=== PATIENT | male | born 1970 | race African-American/Black ===

== ENCOUNTER → 2017-08-21 | Outpatient (CLI) | payer MEDICAID ==
[2017-01-10 17:49] VITALS: BP 142/91
[2017-08-21 11:48] LABS: BASOPHILS # (AUTO) 0.1 X10^3/uL (0.0-0.1); BASOPHILS % (AUTO) 0.7 % (0.2-1.0); EOSINOPHILS # (AUTO) 0.1 x10^3/uL (0.0-0.2); EOSINOPHILS % (AUTO) 1.6 % (0.9-2.9); HEMATOCRIT 41.9 % (42.0-54.0); HEMOGLOBIN 14.1 g/dL (13.5-18.0); MEAN CORPUSCULAR HEMOGLOBIN 27.6 pg (27.0-34.0); MEAN CORPUSCULAR HGB CONC 33.6 g/dL (33.0-35.0); MEAN CORPUSCULAR VOLUME 82.3 fL (80.0-100.0); MEAN PLATELET VOLUME 7.9 fL (7.4-11.0); MONOCYTES # (AUTO) 0.5 x10^3/uL (0.3-0.8); NEUTROPHILS # (AUTO) 3.6 x10^3/uL (2.2-4.8); NEUTROPHILS % (AUTO) 43.7 % (42.0-75.0); PLATELET COUNT 207 X10^3/uL (150.0-450.0); RED BLOOD COUNT 5.09 X10^6/uL (4.7-6.0); RED CELL DISTRIBUTION WIDTH 14.4 % (11.6-16.5); WHITE BLOOD COUNT 8.3 X10^3/uL (3.6-10.0)
[2017-08-21 12:02] LABS: ALANINE AMINOTRANSFERASE 26 Units/L (12-78); ALBUMIN 3.5 g/dL (3.4-5.0); ALKALINE PHOSPHATASE 89 Units/L (46-116); ASPARTATE AMINO TRANSFERASE 20 Units/L (15-37); BLOOD UREA NITROGEN 16 mg/dL (7-18); CALCIUM 9.2 mg/dL (8.5-10.1); CARBON DIOXIDE 31.1 mmol/L (21-32); CHLORIDE 106 mmol/L (98-107); CREATININE 0.87 mg/dL (0.70-1.30); SODIUM 141 mmol/L (136-145); TOTAL PROTEIN 7.4 g/dL (6.4-8.2); eGFR BLACK RACES > 60 (>60); eGFR NON BLACK RACES > 60 (>60)
--- NOTE | 2017-08-21 13:57 | RAD ---
Examination: Chest x-ray. Clinical History: Chest pain. Technique: PA and lateral views of the chest were obtained. Comparison: 10/24/2012. Findings: The cardiac and mediastinal contours are within normal limits. No pneumothorax or pleural effusion is noted. The lungs appear clear. No acute osseous abnormality is noted. Impression: 1. No acute disease. Reported By:
== END ==
LOC: LAB 11:14
PROVIDERS: ATTEND Nurse Practitioner Family
DX: R07.89 Other chest pain (principal)
CPT/HCPCS: 36415; 71020; 80053; 85025

== ENCOUNTER → 2017-10-23 | Outpatient (CLI) | payer MEDICAID ==
[2017-01-10 17:49] VITALS: BP 142/91
--- NOTE | 2017-10-23 16:59 | RAD ---
Examination: Chest, PA and lateral views History: Cough and chest pain Comparison reference 08/21/2017 Findings: Continued normal heart size with clear lungs and pleural spaces. Impression: No interval change; no acute disease. Reported By:
== END ==
LOC: RAD 16:01
PROVIDERS: ATTEND Nurse Practitioner Family
DX: R05 Cough (principal)
CPT/HCPCS: 71020

== ENCOUNTER 2017-11-21 12:42 | Observation (INO) | payer MEDICAID ==
--- NOTE | 2017-11-21 13:23 | DR.H&P ---
H&P - History & Physical for Day of: H&P Date: 11/21/17 - Chief Complaint Chief Complaint: CP, SOB, WEAKNESS - Allergies Allergies/Adverse Reactions: Allergies Allergy/AdvReac Type Severity Reaction Status Date / Time MS Acetaminophen Allergy Intermediate THROAT Verified 01/10/17 17:50 [From Tylenol] SWELL UP MS Aspirin [Aspirin] Allergy Verified 01/10/17 17:50 - History of Present Illness History of Present Illness: patient is a 47-year-old black male who was a direct admit from Dr. Tucker's office after presenting with complaints of chest pain and shortness of breath and increased weakness. 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 patienthypertension, diabetes, or coronary artery disease.has past medical history of osteoarthritis negative for. Patient had EKG in the office today with a rate in the 40s. Patient was a direct admit to ICU for further evaluation of symptomatic bradycardia. - Past Medical History Past Medical History: Arthritis, Seizures - Past Surgical History Surgical History: Ortho Surgery - Family History Family Medical History: Diabetes Mellitus, [place], Hypertension - Social History Does patient currently use any type of tobacco product: Yes Have you used tobacco products in the last 12 months: Yes Type of Tobacco Use: Cigarettes Does any household member use tobacco: No Alcohol Use: None Drug Use: None - Review of Systems Constitutional: Weakness Eyes: No Symptoms Reported ENT: No Symptoms Reported Respiratory: Shortness of Breath, SOB with Excertion Cardiovascular: Chest Pain, Light Headedness. denies: Edema Gastrointestinal: Nausea Genitourinary: No Symptoms Reported Musculoskeletal: Shoulder Pain, Back Pain Skin: No Symptoms Reported Neurological: Weakness - Physical Exam Vital Signs: Blood Pressure 142/91 Oriented: Normal Eyes: Normal Ear: Normal Nose: Normal Throat: Normal Respiratory: RLL Diminished, LLL Diminished Cardiovascular: Bradycardia, Irregular : Normal Auscultation: Bowel Sounds: Normal Palpation: Normal Tenderness: Normal Skin: Normal Musculoskeletal: Shoulder, Back:Lumbar Psychiatric: Anxiety Speech Pattern: Clear, Appropriate - Assessment/Plan (1) Symptomatic bradycardia Status: Acute Plan: ADMIT ICU, SERIAL CE'S EKGS. CXR ON ADMISSION, ADMISSION LABS CBC CMP MAG. SUPPLEMENTAL O2. BP MONITORING (2) Chest pain Status: Acute (3) Shortness of breath Status: Acute
--- NOTE | 2017-11-21 13:54 | RAD ---
Examination: AP chest History: Seizure, chest pain SOB Comparison reference 10/23/2017 Findings: Normal transverse heart diameter with clear lungs and pleural spaces. Impression: No change; no acute abnormality demonstrated. Reported By:
[2017-11-21 14:09] LABS: BASOPHILS # (AUTO) 0.1 X10^3/uL (0.0-0.1); BASOPHILS % (AUTO) 1.1 % (0.2-1.0); EOSINOPHILS # (AUTO) 0.1 x10^3/uL (0.0-0.2); EOSINOPHILS % (AUTO) 1.3 % (0.9-2.9); HEMATOCRIT 44.1 % (42.0-54.0); HEMOGLOBIN 14.7 g/dL (13.5-18.0); LYMPHOCYTES # (AUTO) 3.4 X10^3/uL (1.3-2.9); LYMPHOCYTES % (AUTO) 48.1 % (21.0-51.0); MEAN CORPUSCULAR HEMOGLOBIN 27.5 pg (27.0-34.0); MEAN CORPUSCULAR HGB CONC 33.3 g/dL (33.0-35.0); MEAN CORPUSCULAR VOLUME 82.5 fL (80.0-100.0); MEAN PLATELET VOLUME 8.7 fL (7.4-11.0); MONOCYTES # (AUTO) 0.4 x10^3/uL (0.3-0.8); MONOCYTES % (AUTO) 5.1 % (0.0-13.0); NEUTROPHILS # (AUTO) 3.1 x10^3/uL (2.2-4.8); NEUTROPHILS % (AUTO) 44.4 % (42.0-75.0); PLATELET COUNT 196 X10^3/uL (150.0-450.0); RED BLOOD COUNT 5.35 X10^6/uL (4.7-6.0); RED CELL DISTRIBUTION WIDTH 14.2 % (11.6-16.5); WHITE BLOOD COUNT 7.1 X10^3/uL (3.6-10.0)
[2017-11-21 14:27] LABS: ALANINE AMINOTRANSFERASE 24 Units/L (12-78); ALBUMIN 4.1 g/dL (3.4-5.0); ALKALINE PHOSPHATASE 109 Units/L (46-116); ASPARTATE AMINO TRANSFERASE 36 Units/L (15-37); BLOOD UREA NITROGEN 8 mg/dL (7-18); CALCIUM 9.1 mg/dL (8.5-10.1); CARBON DIOXIDE 31.7 mmol/L (21-32); CHLORIDE 106 mmol/L (98-107); CREATININE 0.95 mg/dL (0.70-1.30); MAGNESIUM 1.7 mg/dL (1.7-2.9); SODIUM 143 mmol/L (136-145); TOTAL PROTEIN 8.2 g/dL (6.4-8.2); eGFR BLACK RACES > 60 (>60); eGFR NON BLACK RACES > 60 (>60)
[2017-11-21 14:38] LABS: CKMB % 0.4 % (<4); CREATINE KINASE 636 Units/L (39-308); CREATINE KINASE MB 2.5 ng/mL (0-4.0); TROPONIN I < 0.02 ng/mL (0-1.5)
[2017-11-21 15:08] LABS: FREE T4 (FREE THYROXINE) 0.86 ng/dL (0.76-1.46); TSH (3RD GENERATION) 1.169 uIU/mL (0.358-3.74)
[2017-11-21 15:11] VITALS: BMI 22.5
[2017-11-21 16:13] LABS: BILIRUBIN,URINE NEGATIVE (NEGATIVE); BLOOD/HEMOGLOBIN,URINE 1+ (NEGATIVE); GLUCOSE, URINE NEGATIVE (NEGATIVE); KETONES,URINE NEGATIVE (NEGATIVE); LEUKOCYTE ESTERASE ,URINE 1+ (NEGATIVE); NITRITES,URINE NEGATIVE (NEGATIVE); PROTEIN,URINE NEGATIVE (NEGATIVE); UROBILINOGEN,URINE NORMAL (NORMAL)
[2017-11-21 16:29] LABS: APPEARANCE,URINE CLEAR (CLEAR); COLOR,URINE YELLOW (YELLOW); RBC,URINE 15-20 /HPF (NEGATIVE)
[2017-11-21 16:30] LABS: SQUAMOUS EPITHELIAL CELL,UR RARE /HPF (NEGATIVE)
[2017-11-21 16:31] LABS: BACTERIA,URINE TRACE /HPF (NEGATIVE)
[2017-11-21 19:59] LABS: CKMB % 0.4 % (<4); CREATINE KINASE 486 Units/L (39-308); CREATINE KINASE MB 1.9 ng/mL (0-4.0); TROPONIN I < 0.02 ng/mL (0-1.5)
[2017-11-22 02:03] LABS: CKMB % 0.4 % (<4); CREATINE KINASE 367 Units/L (39-308); CREATINE KINASE MB 1.6 ng/mL (0-4.0); TROPONIN I < 0.02 ng/mL (0-1.5)
[2017-11-22 06:40] LABS: CHOL/HDL RATIO 2.8 (0.0-5.0)
[2017-11-22] MEDS ORDERED: PROTONIX INJ 40 MG VIAL IVP SCH (09:00)
[2017-11-22] MEDS ORDERED: ASPIRIN PO SCH (09:00)
[2017-11-22] MEDS ORDERED: NICOTINE PATCH TD ONE (10:16)
[2017-11-22 17:32] VITALS: BP 142/87
== END 2017-11-22 17:15 | disposition short-term general hospital (02) ==
LOC: ICU 12:42 → UNDOADMOB 12:42 → ICU 13:11
PROVIDERS: ADMIT Internal Medicine; ATTEND Internal Medicine
DX: R00.1 Bradycardia, unspecified (principal); R07.89 Other chest pain; R06.02 Shortness of breath; R53.1 Weakness; R94.31 Abnormal electrocardiogram [ECG] [EKG]; R79.89 Other specified abnormal findings of blood chemistry
CPT/HCPCS: 36415; 71010; 80053; 80061; 81001; 82550; 82553; 83735; 84439; 84443; 84484; 85025; 85378; 85610; 85730; 93005; 93010; A4216; A4222; C9113; G0378

== ENCOUNTER 2017-12-18 17:43 | Emergency (ER) | payer MEDICAID ==
[2017-12-18 17:49] VITALS: BMI 25.1
--- NOTE | 2017-12-18 18:31 | DR.GENAD ---
HPI - PCP Primary Care Physician: olga lidia gunn - Complaint/Symptoms Chief Complaint Doctors Comments: Patient was seen by his primary care provider today he states that she gave him a shot for stomach pain, he states that he spit/vomited a large volume of sputum. Chief Complaint:: "hurting in abdomen and hack thick spit after getting shot at [facility] for pain I dont know what she gave me" - Source History Provided: Patient - Mode of Arrival Mode of Arrival: EMS - Timing Onset of Chief Complaint: 12/18/17 PMH - PMH Past Medical History: Yes Past Medical History: Arthritis, Seizures Past Surgical History: Yes Surgical History: Ortho Surgery - Family History History of Family Medical Conditions: Yes Family Medical History: Diabetes Mellitus, [place], Hypertension - Social History Does patient currently use any type of tobacco product: Yes Have you used tobacco products in the last 12 months: Yes Type of Tobacco Use: Cigarettes How many years tobacco product used: 8 Does any household member use tobacco: No Alcohol Use: None Do you use any recreational Drugs:: No Lives With: Family Lives Where: Home - infectious screening In the last 2 months have you had wt loss of >10#?: NO Have you had fever, night sweats or hemotysis?: No Have you traveled outside the country in the last 6 months?: No Isolation: Standard ROS - Review of Systems Constitutional: No Symptoms Reported Eyes: No Symptoms Reported ENTM: No Symptoms Reported Cardiovascular: No Symptoms Reported Gastrointestinal/Abdominal: No Symptoms Reported Genitourinary: No Symptoms Reported Neurological: No Symptoms Reported, Emotional Problems Musculoskeletal: No Symptoms Reported Integumentary: No Symptoms Reported Hematologic/Lymphatic: No Symptoms Reported Endocrine: No Symptoms Reported Psychiatric: No Symptoms Reported All Other Systems: Reviewed and Negative PE - Vital Signs Vitals: Temperature 98 F Pulse Rate 66 Respiratory Rate 18 Blood Pressure [Right Arm] 142/87 Blood Pressure 130/77 O2 Sat by Pulse Oximetry 100 - General Limitations: No Limitations General Appearance: Alert, In No Apparent Distress - Head Head Exam: Normal Inspection, Atraumatic - Eyes Eye exam: Normal Appearance, PERRL, EOMI - ENT ENT Exam: Normal Exam External Ear Exam: Normal External Inspection TM/Canal Exam: Bilateral Normal Nose Exam: Normal Nose Exam Mouth Exam: Normal Inspection Throat Exam: Normal Inspection - Neck Neck Exam: Normal Inspection, Full ROM - Chest Chest Inspection: Normal Inspection - Respiratory Respiratory Exam: Normal Lung Sounds Bilat Respiratory Exam: Bilateral Clear to Auscultation - Cardiovascular Cardiovascular Exam: Regular Rate, Normal Rhythm - Abdominal Exam Abdominal Exam: Normal Inspection Abdominal Tenderness: negative: RUQ, RLQ, LUQ, LLQ, Epigastrium, Suprapubic, Diffuse, Mild, Moderate, Severe, Other - Extremities Extremities Exam: Normal Inspection, Full ROM - Back Back Exam: Normal Inspection, Full ROM - Neurologic Neurological Exam: Alert, Oriented X3, CN II-XII Intact - Skin Skin Exam: Warm, Dry, Intact Course - Reevaluation 1st: Improved ROR - Labs Reviewed Result Diagrams: 12/18/17 19:30 12/18/17 19:30 Laboratory: WBC 6.9 X10^3/uL (3.6-10.0) 12/18/17 19:30 RBC 4.82 X10^6/uL (4.7-6.0) 12/18/17 19:30 Hgb 13.3 g/dL (13.5-18.0) L 12/18/17 19:30 Hct 39.6 % (42.0-54.0) L 12/18/17 19:30 MCV 82.2 fL (80.0-100.0) 12/18/17 19:30 MCH 27.5 pg (27.0-34.0) 12/18/17 19:30 MCHC 33.5 g/dL (33.0-35.0) 12/18/17 19:30 RDW 13.9 % (11.6-16.5) 12/18/17 19:30 Plt Count 206 X10^3/uL (150.0-450.0) 12/18/17 19:30 MPV 8.2 fL (7.4-11.0) 12/18/17 19:30 Neut % 38.2 % (42.0-75.0) L 12/18/17 19:30 Lymph % 50.5 % (21.0-51.0) 12/18/17 19:30 Logan % 7.1 % (0.0-13.0) 12/18/17 19:30 Eos % 3.5 % (0.9-2.9) H 12/18/17 19:30 Baso % 0.7 % (0.2-1.0) 12/18/17 19:30 Neut # 2.6 x10^3/uL (2.2-4.8) 12/18/17 19:30 Lymph # 3.5 X10^3/uL (1.3-2.9) H 12/18/17 19:30 Logan # 0.5 x10^3/uL (0.3-0.8) 12/18/17 19:30 Eos # 0.2 x10^3/uL (0.0-0.2) 12/18/17 19:30 Baso # 0.1 X10^3/uL (0.0-0.1) 12/18/17 19:30 Absolute Nucleated RBC 0.1 /100WBC 12/18/17 19:30 Sodium 141 mmol/L (136-145) 12/18/17 19:30 Corrected Sodium TNP 12/18/17 19:30 Potassium 3.6 mmol/L (3.5-5.1) 12/18/17 19:30 Chloride 106 mmol/L (98-107) 12/18/17 19:30 Carbon Dioxide 31.6 mmol/L (21-32) 12/18/17 19:30 BUN 16 mg/dL (7-18) 12/18/17 19:30 Creatinine 0.85 mg/dL (0.70-1.30) 12/18/17 19:30 Est GFR (MDRD) Af Amer > 60 (>60) 12/18/17 19:30 Est GFR (MDRD) Non-Af > 60 (>60) 12/18/17 19:30 Glucose 105 mg/dL (65-99) H 12/18/17 19:30 Calcium 9.1 mg/dL (8.5-10.1) 12/18/17 19:30 Corrected Calcium TNP 12/18/17 19:30 Total Bilirubin 0.40 mg/dL (0.2-1.0) 12/18/17 19:30 AST 20 Units/L (15-37) 12/18/17 19:30 ALT 27 Units/L (12-78) 12/18/17 19:30 Alkaline Phosphatase 89 Units/L (46-116) 12/18/17 19:30 Total Protein 7.5 g/dL (6.4-8.2) 12/18/17 19:30 Albumin 3.5 g/dL (3.4-5.0) 12/18/17 19:30 Globulin 4.0 g/dL (2.5-4.5) 12/18/17 19:30 Albumin/Globulin Ratio 0.9 Ratio (1.1-2.1) L 12/18/17 19:30 - XRAY XRAY Interpreted by: Radiologist (Chest:Dual chamber pacematker right; Lungs clear w/o consolidation,effusion or pneumonia, Flat/upright Abd: no pathology) - Diagnosis Discharge Problem: Stomach pain - Discharge Plan Condition: Stable - Follow ups/Referrals Follow ups/Referrals: OLGA LIDIA GUNN [Primary Care Provider] - 3 days - Instructions
--- NOTE | 2017-12-18 19:14 | RAD ---
HISTORY: Stomach pain Study: Acute abdominal series Comparison: None Findings: There is a right-sided dual-chamber pacemaker. The lungs are clear without consolidation, effusion or pneumothorax. The cardiac and mediastinal contours are within normal limits. Flat plate and upright evaluation of the abdomen demonstrates a normal bowel gas pattern. No gross fr ee intraperitoneal air. No pathological soft tissue mass or calcification can be observed. The bony structures are grossly intact. IMPRESSION: 1. No acute cardiopulmonary disease. 2. No evidence of acute abdominal pathology. Reported By:
[2017-12-18 19:48] LABS: BASOPHILS # (AUTO) 0.1 X10^3/uL (0.0-0.1); BASOPHILS % (AUTO) 0.7 % (0.2-1.0); EOSINOPHILS # (AUTO) 0.2 x10^3/uL (0.0-0.2); EOSINOPHILS % (AUTO) 3.5 % (0.9-2.9); HEMATOCRIT 39.6 % (42.0-54.0); HEMOGLOBIN 13.3 g/dL (13.5-18.0); LYMPHOCYTES # (AUTO) 3.5 X10^3/uL (1.3-2.9); LYMPHOCYTES % (AUTO) 50.5 % (21.0-51.0); MEAN CORPUSCULAR HEMOGLOBIN 27.5 pg (27.0-34.0); MEAN CORPUSCULAR HGB CONC 33.5 g/dL (33.0-35.0); MEAN CORPUSCULAR VOLUME 82.2 fL (80.0-100.0); MEAN PLATELET VOLUME 8.2 fL (7.4-11.0); MONOCYTES # (AUTO) 0.5 x10^3/uL (0.3-0.8); MONOCYTES % (AUTO) 7.1 % (0.0-13.0); NEUTROPHILS # (AUTO) 2.6 x10^3/uL (2.2-4.8); NEUTROPHILS % (AUTO) 38.2 % (42.0-75.0); PLATELET COUNT 206 X10^3/uL (150.0-450.0); RED BLOOD COUNT 4.82 X10^6/uL (4.7-6.0); RED CELL DISTRIBUTION WIDTH 13.9 % (11.6-16.5); WHITE BLOOD COUNT 6.9 X10^3/uL (3.6-10.0)
[2017-12-18 19:59] LABS: ALANINE AMINOTRANSFERASE 27 Units/L (12-78); ALBUMIN 3.5 g/dL (3.4-5.0); ALKALINE PHOSPHATASE 89 Units/L (46-116); ASPARTATE AMINO TRANSFERASE 20 Units/L (15-37); BLOOD UREA NITROGEN 16 mg/dL (7-18); CALCIUM 9.1 mg/dL (8.5-10.1); CARBON DIOXIDE 31.6 mmol/L (21-32); CHLORIDE 106 mmol/L (98-107); CREATININE 0.85 mg/dL (0.70-1.30); SODIUM 141 mmol/L (136-145); TOTAL PROTEIN 7.5 g/dL (6.4-8.2); eGFR BLACK RACES > 60 (>60); eGFR NON BLACK RACES > 60 (>60)
[2017-12-18 20:39] VITALS: BP 109/78
== END 2017-12-18 20:39 | disposition home or self-care (01) ==
LOC: ER 17:46
DX: R10.84 Generalized abdominal pain (principal)
CPT/HCPCS: 36415; 74022; 80053; 85025; 99282

== ENCOUNTER 2019-05-10 11:44 | Observation (INO) ==
[2019-05-10 11:50] VITALS: BMI 24.3
--- NOTE | 2019-05-10 12:06 | DR.CP ---
HPI Time Seen Time Seen by Provider: 05/10/19 12:05 PCP Primary Care Physician: CARLA ADHIKARI HPI Comment HPI Comment: PATIENT IS 48YR OLD MALE WITH HISTORORY HYPERTENSION PRESENT TO EMERGENCY ROOM WITH SUDDEN ONSET OF PRECORDIAL CHEST PAIN RADIATING TO THE BACK. Complaint Chief Complaint Doctor Comments: CHEST PAIN THAT STARTED SUDDENLY TODAY. Chief Complaint:: PT C/O CP. PT STATES PAIN HAS JUST STARTED OUT OF NOWHERE Reviewed Nurses Notes Review: Yes Source History Provided: Patient Mode of Arrival Mode of Arrival: Ambulatory Timing Onset of Chief Complaint: 05/10/19 Came on: Suddenly Duration Duration: Constant Duration: Hours Location Location of Chest Pain: Left and Chest Chest Pain Radiation Location: Back Context Onset: At rest Cardiac Risk Factors: Smoker and HTN PE Risk Factors: None History of: None Prehospital Care: None Quality Quality: Sharp Severity Severity: Severe Modifying Factors Worsens: Exertion Impoves: Rest Associated Signs and Symptoms Associated Signs and Symptoms: Shortness of Breath PMH PMH Past Medical History: Yes Past Medical History: Arthritis, Hypertension and Seizures Past Surgical History: Yes Surgical History: Ortho Surgery and Other Family History History of Family Medical Conditions: Yes Family Medical History: Diabetes Mellitus, [place] and Hypertension Social History Does patient currently use any type of tobacco product: Yes Have you used tobacco products in the last 12 months: Yes Type of Tobacco Use: Cigarettes How many years tobacco product used: 35 Does any household member use tobacco: No Alcohol Use: Occasionally Do you use any recreational Drugs:: Yes Lives With: Spouse Lives Where: Home infectious screening In the last 2 months have you had wt loss of >10#?: NO Have you had fever, night sweats or hemotysis?: No Have you traveled outside the country in the last 6 months?: No Isolation: Standard ROS Review of Systems Constitutional: See HPI, Weakness and Fatigue; negative Fever Eyes: No Symptoms Reported and See HPI ENTM: No Symptoms Reported and See HPI Respiratoy: See HPI and Short of Breath; negative Moist Cough and Wheezing Cardiovascular: See HPI and Chest Pain; negative Edema and Palpitations Gastrointestinal/Abdominal: No Symptoms Reported and See HPI; negative Abdominal Pain, Constipation, Diarrhea, Nausea and Vomiting Genitourinary: No Symptoms Reported and See HPI; negative Dysuria, Frequency and Hematuria Neurological: See HPI and Weakness; negative Dizziness Musculoskeletal: No Symptoms Reported and See HPI; negative Back Pain and Neck Pain Integumentary: No Symptoms Reported and See HPI; negative Change in Color, Rash, Bruises and Juandice Hematologic/Lymphatic: No Symptoms Reported and See HPI; negative Easy Bleeding, Easy Bruising, Swollen Glands and Lymphadenopathy Endocrine: No Symptoms Reported and See HPI; negative Increased Thirst, Increased Urine and Decreased Appetite Psychiatric: No Symptoms Reported and See HPI All Other Systems: Reviewed and Negative PE Vitals Vitals: Temperature 98.0 F Pulse Rate [Left Brachial] 92 Pulse Rate 60 Respiratory Rate 20 Blood Pressure [Left Arm] 112/74 Blood Pressure [Right Arm] 109/78 Blood Pressure 120/85 O2 Sat by Pulse Oximetry 99 General Limitations: No Limitations General Appearance: Alert and In No Apparent Distress Head Head Exam: Normal Inspection, Atraumatic and Normocephalic Eyes Eye exam: Normal Appearance, PERRL and EOMI; negative Scleral Icterus and Conjun ctival Injection ENT ENT Exam: Normal Exam, Normal Oropharynx, Normal External Ear Exam and TM's Normal Bilaterally Chest Chest Inspection: Normal Inspection and Symmetric Chest Wall Rise; negative Tenderness Respiratory Respiratory Exam: Normal Lung Sounds Bilat; negative Accessory Muscle Use, Chest Wall Tenderness and Respiratory Distress Respiratory Exam: Bilateral: Clear to Auscultation Cardiovascular Cardiovascular Exam: Regular Rate, Normal Rhythm and Normal Heart Sounds; negative Systolic Murmur and Diastolic Murmur Pulse: Normal Edema: Normal Abdominal Exam Abdominal Exam: Normal Inspection, Normal Bowel Sounds and Soft; negative Tenderness Extremities Extremities Exam: Normal Inspection and Normal Capillary Refill; negative Tenderness, Edema and Calf Tenderness Back Back Exam: Normal Inspection; negative Tenderness, Paraspinal Tenderness and Vertebral Tenderness Neurologic Neurological Exam: Alert, Oriented X3, CN II-XII Intact, Normal Gait and Reflexes Normal; negative Motor Sensory Deficit Psychiatric Psychiatric Exam: Normal Affect and Normal Mood Skin Skin Exam: Warm, Dry, Intact and Normal Color MDM Differential Diagnosis Differential Diagnosis: Angina, Chest Wall Pain, CHF, Costochondritis, Gastritis, Myocardial Infarction, Pericarditis, Pneumonia, Pneumothorax and Pulmonary Embolus COURSE Treatment Treatment: SEE ORDERS. Education/Counseling Education/Counseling: Patient Educated On: Diagnosis and Needs for Follow Up ROR Labs Reviewed Laboratory Results Reviewed?: Yes Result Diagrams: 05/11/19 04:54 05/11/19 04:54 Laboratory: 05/11/19 05:04 Urine,Clean Catch Urine Culture - Final WBC 7.1 X10^3/uL (3.6-10.0) 05/11/19 04:54 RBC 4.81 X10^6/uL (4.7-6.0) 05/11/19 04:54 Hgb 13.4 g/dL (13.5-18.0) L D 05/11/19 04:54 Hct 40.4 % (42.0-54.0) L 05/11/19 04:54 MCV 84.0 fL (80.0-100.0) 05/11/19 04:54 MCH 27.9 pg (27.0-34.0) 05/11/19 04:54 MCHC 33.2 g/dL (33.0-35.0) 05/11/19 04:54 RDW 14.2 % (11.6-16.5) 05/11/19 04:54 Plt Count 181 X10^3/uL (150.0-450.0) 05/11/19 04:54 MPV 8.1 fL (7.4-11.0) 05/11/19 04:54 Neut % (Auto) 31.8 % (42.0-75.0) L 05/11/19 04:54 Lymph % (Auto) 56.8 % (21.0-51.0) H 05/11/19 04:54 [place] % (Auto) 6.5 % (0.0-13.0) 05/11/19 04:54 Eos % (Auto) 4.2 % (0.9-2.9) H 05/11/19 04:54 Baso % (Auto) 0.7 % (0.2-1.0) 05/11/19 04:54 Neut # (Auto) 2.3 x10^3/uL (2.2-4.8) 05/11/19 04:54 Lymph # (Auto) 4.0 X10^3/uL (1.3-2.9) H 05/11/19 04:54 [place] # (Auto) 0.5 x10^3/uL (0.3-0.8) 05/11/19 04:54 Eos # (Auto) 0.3 x10^3/uL (0.0-0.2) H 05/11/19 04:54 Baso # (Auto) 0.0 X10^3/uL (0.0-0.1) 05/11/19 04:54 Absolute Nucleated RBC 0.1 /100WBC 05/11/19 04:54 D-Dimer 266 ng/mL (0-400) 05/10/19 12:02 Sodium 141 mmol/L (136-145) 05/11/19 04:54 Corrected Sodium TNP 05/11/19 04:54 Potassium 3.9 mmol/L (3.5-5.1) 05/11/19 04:54 Chloride 107 mmol/L (98-107) 05/11/19 04:54 Carbon Dioxide 25.4 mmol/L (21-32) 05/11/19 04:54 BUN 14 mg/dL (7-18) 05/11/19 04:54 Creatinine 0.82 mg/dL (0.70-1.30) 05/11/19 04:54 Est GFR (MDRD) Af Amer > 60 (>60) 05/11/19 04:54 Est GFR (MDRD) Non-Af > 60 (>60) 05/11/19 04:54 Glucose 103 mg/dL (65-99) H 05/11/19 04:54 Calcium 8.8 mg/dL (8.5-10.1) 05/11/19 04:54 Corrected Calcium 9.4 mg/dL (8.5-10.1) 05/11/19 04:54 Magnesium 1.7 mg/dL (1.7-2.9) 05/11/19 04:54 Total Bilirubin 0.30 mg/dL (0.2-1.0) 05/11/19 04:54 AST 16 Units/L (15-37) 05/11/19 04:54 ALT 17 Units/L (12-78) 05/11/19 04:54 Alkaline Phosphatase 78 Units/L (46-116) 05/11/19 04:54 Creatine Kinase 170 Units/L (39-308) 05/11/19 00:59 CK-MB (CK-2) 1.3 ng/mL (0-4.0) 05/11/19 00:59 CK/CKMB % Calc 0.8 % (<4) 05/11/19 00:59 Troponin I 0.02 ng/mL (0-1.5) 05/11/19 00:59 B-Natriuretic Peptide 16.9 pg/mL (0-79) 05/10/19 12:02 Total Protein 6.5 g/dL (6.4-8.2) 05/11/19 04:54 Albumin 3.2 g/dL (3.4-5.0) L 05/11/19 04:54 Globulin 3.3 g/dL (2.5-4.5) 05/11/19 04:54 Albumin/Globulin Ratio 1.0 Ratio (1.1-2.1) L 05/11/19 04:54 Triglycerides 62 mg/dL (0-150) 05/11/19 04:54 Cholesterol 141 mg/dL (0-200) 05/11/19 04:54 LDL Cholesterol, Calc 85 mg/dL (0-100) 05/11/19 04:54 HDL Cholesterol 44 mg/dL (40-60) 05/11/19 04:54 Cholesterol/HDL Ratio 3.2 (0.0-5.0) 05/11/19 04:54 Specimen Type Clean catch urine 05/11/19 05:04 Urine Color Yellow (YELLOW) 05/11/19 05:04 Urine Appearance Clear (CLEAR) 05/11/19 05:04 Urine pH 6.0 (5.0 - 8.0) 05/11/19 05:04 Ur Specific [place] 1.010 (1.000-1.030) 05/11/19 05:04 Urine Protein Negative (NEGATIVE) 05/11/19 05:04 Urine Glucose (UA) Negative (NEGATIVE) 05/11/19 05:04 Urine Ketones Negative (NEGATIVE) 05/11/19 05:04 Urine Occult Blood Negative (NEGATIVE) 05/11/19 05:04 Urine Nitrite Negative (NEGATIVE) 05/11/19 05:04 Urine Bilirubin Negative (NEGATIVE) 05/11/19 05:04 Urine Urobilinogen Normal (NORMAL) 05/11/19 05:04 Ur Leukocyte Esterase 1+ (NEGATIVE) 05/11/19 05:04 Urine RBC 0-2 /HPF (NONE SEEN) 05/11/19 05:04 Urine WBC 5-10 /HPF (NONE SEEN) 05/11/19 05:04 Ur Squamous Epith Cells Few /HPF (NEGATIVE) 05/11/19 05:04 Urine Bacteria Negative /HPF (NEGATIVE) 05/11/19 05:04 Ur Culture Indicated? Yes/culture set up 05/11/19 05:04 XRAY XRAY Interpreted by: Radiologist XRAY Findings: REPORT NOTED AND DISCUSS WITH PATIENT. EKG Rate: 60 [place]: Normal Block: 1 Hypertrophy: LVH ST: Nonsp Opioid Opioid Risk Tool Age (Doc box if 16-45): No Total: 0 Total Score Risk Category: Low Risk Copyright: [facility] predicting aberrant behaviors Diagnosis Discharge Problem: SOB (shortness of breath) Chest pain Qualifiers: Chest pain type: precordial pain Qualified Code(s): R07.2 - Precordial pain Instructions Instructions: Steps to Quit Smoking, Nrof-mk-[id number] Shortness of Breath, Adult, Ljby-xi-Bvkj Cannabis Use Disorder Nonspecific Chest Pain, Uxnh-py-Abum Hypertension, Escj-hh-Agxp Pain Medicine Instructions, Fciv-lm-Zggt Forms: Excuse From Work
[2019-05-10 12:39] LABS: BASOPHILS % (AUTO) 0.6 % (0.2-1.0); EOSINOPHILS # (AUTO) 0.2 x10^3/uL (0.0-0.2); EOSINOPHILS % (AUTO) 2.7 % (0.9-2.9); HEMOGLOBIN 15.9 g/dL (13.5-18.0); LYMPHOCYTES # (AUTO) 3.4 X10^3/uL (1.3-2.9); LYMPHOCYTES % (AUTO) 48.7 % (21.0-51.0); MEAN CORPUSCULAR HEMOGLOBIN 28.4 pg (27.0-34.0); MEAN CORPUSCULAR HGB CONC 33.9 g/dL (33.0-35.0); MEAN CORPUSCULAR VOLUME 83.7 fL (80.0-100.0); MONOCYTES # (AUTO) 0.5 x10^3/uL (0.3-0.8); MONOCYTES % (AUTO) 6.9 % (0.0-13.0); NEUTROPHILS # (AUTO) 2.9 x10^3/uL (2.2-4.8); NEUTROPHILS % (AUTO) 41.1 % (42.0-75.0); PLATELET COUNT 196 X10^3/uL (150.0-450.0); RED BLOOD COUNT 5.61 X10^6/uL (4.7-6.0); RED CELL DISTRIBUTION WIDTH 14.4 % (11.6-16.5)
[2019-05-10 12:52] LABS: BLOOD UREA NITROGEN 11 mg/dL (7-18); CALCIUM 10.2 mg/dL (8.5-10.1); CARBON DIOXIDE 29.9 mmol/L (21-32); CHLORIDE 104 mmol/L (98-107); CREATININE 0.93 mg/dL (0.70-1.30); SODIUM 144 mmol/L (136-145); TROPONIN I < 0.02 ng/mL (0-1.5); eGFR NON BLACK RACES > 60 (>60)
--- NOTE | 2019-05-10 12:54 | RAD ---
HISTORY: Dyspnea and chest pain Study: Single-view chest Comparison: July 11, 2018 Findings: A cardiac pacing device is noted. The trachea is midline. The cardiac silhouette is unremarkable. The lungs are clear without focal mass or consolidation. There is no effusion or pneumothorax. The bony thorax is grossly unremarkable. IMPRESSION: No acute cardiopulmonary disease. Reported By:
[2019-05-10 12:56] LABS: ALANINE AMINOTRANSFERASE 23 Units/L (12-78); ALBUMIN 4.5 g/dL (3.4-5.0); ALKALINE PHOSPHATASE 108 Units/L (46-116); ASPARTATE AMINO TRANSFERASE 25 Units/L (15-37); CKMB % 0.9 % (<4); CREATINE KINASE 222 Units/L (39-308); CREATINE KINASE MB 1.9 ng/mL (0-4.0); TOTAL PROTEIN 8.8 g/dL (6.4-8.2)
[2019-05-10] MEDS ORDERED: NS 1000 ML 1,000 ML ONE (16:09)
[2019-05-10] MEDS: NS 1000 ML 1,000 ML IV SCH (16:21)
[2019-05-10 19:28] LABS: CREATINE KINASE MB 1.6 ng/mL (0-4.0); TROPONIN I 0.02 ng/mL (0-1.5)
[2019-05-11 01:27] LABS: CKMB % 0.8 % (<4); CREATINE KINASE MB 1.3 ng/mL (0-4.0); TROPONIN I 0.02 ng/mL (0-1.5)
[2019-05-11] MEDS: NS 1000 ML 1,000 ML IV SCH (04:11)
[2019-05-11 05:30] LABS: BILIRUBIN,URINE NEGATIVE (NEGATIVE); BLOOD/HEMOGLOBIN,URINE NEGATIVE (NEGATIVE); GLUCOSE, URINE NEGATIVE (NEGATIVE); KETONES,URINE NEGATIVE (NEGATIVE); LEUKOCYTE ESTERASE ,URINE 1+ (NEGATIVE); NITRITES,URINE NEGATIVE (NEGATIVE); PROTEIN,URINE NEGATIVE (NEGATIVE); UROBILINOGEN,URINE NORMAL (NORMAL)
[2019-05-11 05:32] LABS: BASOPHILS % (AUTO) 0.7 % (0.2-1.0); EOSINOPHILS # (AUTO) 0.3 x10^3/uL (0.0-0.2); EOSINOPHILS % (AUTO) 4.2 % (0.9-2.9); HEMATOCRIT 40.4 % (42.0-54.0); HEMOGLOBIN 13.4 g/dL (13.5-18.0); LYMPHOCYTES % (AUTO) 56.8 % (21.0-51.0); MEAN CORPUSCULAR HEMOGLOBIN 27.9 pg (27.0-34.0); MEAN CORPUSCULAR HGB CONC 33.2 g/dL (33.0-35.0); MEAN PLATELET VOLUME 8.1 fL (7.4-11.0); MONOCYTES # (AUTO) 0.5 x10^3/uL (0.3-0.8); MONOCYTES % (AUTO) 6.5 % (0.0-13.0); NEUTROPHILS # (AUTO) 2.3 x10^3/uL (2.2-4.8); NEUTROPHILS % (AUTO) 31.8 % (42.0-75.0); PLATELET COUNT 181 X10^3/uL (150.0-450.0); RED BLOOD COUNT 4.81 X10^6/uL (4.7-6.0); RED CELL DISTRIBUTION WIDTH 14.2 % (11.6-16.5); WHITE BLOOD COUNT 7.1 X10^3/uL (3.6-10.0)
[2019-05-11 05:38] LABS: APPEARANCE,URINE CLEAR (CLEAR); BACTERIA,URINE NEGATIVE /HPF (NEGATIVE); COLOR,URINE YELLOW (YELLOW); RBC,URINE 0-2 /HPF (NONE SEEN); SQUAMOUS EPITHELIAL CELL,UR FEW /HPF (NEGATIVE)
[2019-05-11 05:49] LABS: BLOOD UREA NITROGEN 14 mg/dL (7-18); CARBON DIOXIDE 25.4 mmol/L (21-32); CHLORIDE 107 mmol/L (98-107); CREATININE 0.82 mg/dL (0.70-1.30); SODIUM 141 mmol/L (136-145)
[2019-05-11 05:50] LABS: ALANINE AMINOTRANSFERASE 17 Units/L (12-78); ALBUMIN 3.2 g/dL (3.4-5.0); ALKALINE PHOSPHATASE 78 Units/L (46-116); ASPARTATE AMINO TRANSFERASE 16 Units/L (15-37); CALCIUM 8.8 mg/dL (8.5-10.1); CHOL/HDL RATIO 3.2 (0.0-5.0); CHOLESTEROL 141 mg/dL (0-200); COR CA(FOR HYPOALB) 9.4 mg/dL (8.5-10.1); HDL CHOLESTEROL 44 mg/dL (40-60); MAGNESIUM 1.7 mg/dL (1.7-2.9); TOTAL PROTEIN 6.5 g/dL (6.4-8.2); TRIGLYCERIDES 62 mg/dL (0-150); eGFR NON BLACK RACES > 60 (>60)
[2019-05-11 16:05] VITALS: BP 112/74
--- NOTE | 2019-05-27 13:40 | DR.CARTERS ---
Short Stay Summary - Discharge Medications Discharge Medications: Home Medication List ciprofloxacin HCl 500 mg PO BID 05/10/19 [History] meloxicam 15 mg PO DAILY 05/10/19 [History] aspirin [Ecotrin] 325 mg PO QDAY #30 tab 05/11/19 [Rx] ranitidine HCl 150 mg PO QDAY #30 tab 05/11/19 [Rx] Prescriptions: aspirin [Ecotrin] CARLA ADHIKARI ranitidine HCl CARLA ADHIKARI - Discharge Plan Disposition: HOME, SELF-CARE Condition: Stable Prescriptions: aspirin [Ecotrin] 325 mg PO QDAY #30 tab ranitidine HCl 150 mg PO QDAY #30 tab - Follow up/Referrals Follow up/Referrals: CARLA ADHIKARI [Primary Care Provider] - 05/18/19 2:00 pm Chao Castle [STAFF PHYSICIAN] - 1 WEEK - Instructions Instructions: Steps to Quit Smoking, Itus-jc-Dqkg, Shortness of Breath, Adult, Ekwt-nh-Kloi, Cannabis Use Disorder, Nonspecific Chest Pain, Qpoq-rx-Omoe, Hypertension, Sbbp-rx-Toag, Pain Medicine Instructions, Mjki-me-Lxof Forms: Excuse From Work
== END 2019-05-11 16:25 | disposition home or self-care (01) ==
LOC: ER 11:44 → MED/SURG 11:44
PROVIDERS: ADMIT Internal Medicine; ATTEND Internal Medicine
DX: R06.02 Shortness of breath; Z95.0 Presence of cardiac pacemaker; K21.9 Gastro-esophageal reflux disease without esophagitis; R94.31 Abnormal electrocardiogram [ECG] [EKG]; R07.89 Other chest pain; Z86.79 Personal history of other diseases of the circulatory system
CPT/HCPCS: 36415; 71010; 71045; 80053; 80061; 81001; 82550; 82553; 83735; 83880; 84484; 85025; 85378; 87086; 93005; 93306; 94760; 96365; 96367; 99284; A4222; G0378; J7030

== ENCOUNTER 2024-11-10 16:01 | Observation (INO) ==
[2024-11-10] MEDS: NITROSTAT SL PRN (16:11)
[2024-11-10 16:15] VITALS: BMI 21.9
--- NOTE | 2024-11-10 16:30 | EKG ---
Test Reason : CHEST PAIN Blood Pressure : */* mmHG Vent. Rate : 64 BPM Atrial Rate : 64 BPM P-R Int : 312 ms QRS Dur : 158 ms QT Int : 460 ms P-R-T Axes : 60 -61 117 degrees QTc Int : 474 ms Atrial-sensed ventricular-paced rhythm with prolonged AV conduction with occasional premature ventric ular complexes Abnormal ECG When compared with ECG of 28-NOV-2023 15:41, Electronic ventricular pacemaker has replaced Sinus rhythm Confirmed by Khanh Trejo MD ([id number]) on 11/10/2024 4:37:00 PM Referred By: Confirmed By: Khanh Trejo MD
--- NOTE | 2024-11-10 16:30 | EKG ---
Test Reason : CHEST PAIN Blood Pressure : */* mmHG Vent. Rate : 64 BPM Atrial Rate : 64 BPM P-R Int : 308 ms QRS Dur : 158 ms QT Int : 446 ms P-R-T Axes : 68 -60 109 degrees QTc Int : 460 ms Atrial-sensed ventricular-paced rhythm with prolonged AV conduction Abnormal ECG When compared with ECG of 10-NOV-2024 16:05, (Unconfirmed) premature ventricular complexes are no longer present Confirmed by Khanh Trejo MD ([id number]) on 11/10/2024 4:38:10 PM Referred By: Confirmed By: Khanh Trejo MD
[2024-11-10 16:40] LABS: BASOPHILS # (AUTO) 0.1 X10^3/uL (0.0-0.1); BASOPHILS % (AUTO) 0.9 % (0.2-1.0); EOSINOPHILS # (AUTO) 0.2 x10^3/uL (0.0-0.2); HEMATOCRIT 40.8 % (42.0-54.0); HEMOGLOBIN 13.8 g/dL (13.5-18.0); LYMPHOCYTES # (AUTO) 4.3 X10^3/uL (1.3-2.9); LYMPHOCYTES % (AUTO) 54.5 % (21.0-51.0); MEAN CORPUSCULAR HEMOGLOBIN 28.3 pg (27.0-34.0); MEAN CORPUSCULAR HGB CONC 33.9 g/dL (33.0-35.0); MEAN CORPUSCULAR VOLUME 83.3 fL (80.0-100.0); MONOCYTES # (AUTO) 0.6 x10^3/uL (0.3-0.8); MONOCYTES % (AUTO) 7.7 % (0.0-13.0); NEUTROPHILS # (AUTO) 2.7 x10^3/uL (2.2-4.8); NEUTROPHILS % (AUTO) 33.9 % (42.0-75.0); PLATELET COUNT 218 X10^3/uL (150.0-450.0); RED CELL DISTRIBUTION WIDTH 14.8 % (11.6-16.5); WHITE BLOOD COUNT 7.9 X10^3/uL (3.6-10.0)
[2024-11-10 16:46] LABS: INR 1.03 (0.8-1.3)
[2024-11-10 16:55] LABS: ALANINE AMINOTRANSFERASE 17 Units/L (12-78); ALBUMIN 3.6 g/dL (3.4-5.0); ALKALINE PHOSPHATASE 107 Units/L (46-116); ASPARTATE AMINO TRANSFERASE 17 Units/L (15-37); BLOOD UREA NITROGEN 14 mg/dL (7-18); CHLORIDE 108 mmol/L (98-107); CREATININE 1.15 mg/dL (0.70-1.30); GLUCOSE 103 mg/dL (65-99); MAGNESIUM 1.8 mg/dL (2.0-2.9); POTASSIUM 3.8 mmol/L (3.5-5.1); SODIUM 143 mmol/L (136-145); TOTAL PROTEIN 7.3 g/dL (6.4-8.2); eGFR NON BLACK RACES > 60 (>60)
--- NOTE | 2024-11-10 17:34 | DR.SOBA ---
HPI <Yoav Pa - Last Filed: 11/10/24 20:33> Time Seen Time Seen by Provider: 11/10/24 17:22 Primary Care Physician Primary Care Physician: Lexx PEREZ HPI Comment HPI Comment: Patient was smoking outside with friends and started having intense chest and neck and shoulder pain. Stated he was nauseated. Patient has extensive cardiac history. Complaints Chief Complaint:: Family member states that the patient was sitting outside with friends, then suddenly started acting like he was having shortness of breath. He started complaining of intense neck, left shoulder, and chest pain shortly after. Patient states that he has been nauseated since the pain started. COVID-19 Coronavirus risk:travel/contact w/high risk person: No Has patient experienced Coronavirus symptoms: Yes Coronavirus symptoms experienced: Shortness of Breath Source History Provided: Patient and Family Member Mode of Arrival Mode of Arrival: Wheelchair Timing Onset of Chief Complaint: 11/10/24 PMH <Yoavsherine Winn - Last Filed: 11/10/24 20:33> PMH Past Medical History: Yes Past Medical History: Arthritis, Coronary Artery Disease, Hypertension and Seizures Past Surgical History: Yes Surgical History: Angioplasty/Stents, Ortho Surgery and Other Past Surgical History Comment: Pace maker Family History History of Family Medical Conditions: Yes Family Medical History: Diabetes Mellitus Social History Does patient currently use any type of tobacco product: Yes Have you used tobacco products in the last 12 months: Yes Type of Tobacco Use: Cigarettes Does any household member use tobacco: Yes Alcohol Use: None Do you use any recreational Drugs:: Yes (marijuana) Lives With: Family Lives Where: Home Travel Risk Coronavirus risk:travel/contact w/high risk person: No Has patient experienced Coronavirus symptoms: Yes Coronavirus symptoms experienced: Shortness of Breath Infectious screening In the last 2 months have you had wt loss of >10#?: NO Have you had fever, night sweats or hemotysis?: No Have you traveled outside the country in the last 6 months?: No Isolation: Standard ROS <Yoavsherine Winn - Last Filed: 11/10/24 20:33> Review of Systems Constitutional: No Symptoms Reported Eyes: No Symptoms Reported ENTM: No Symptoms Reported Respiratoy: See HPI and Short of Breath Cardiovascular: See HPI and Chest Pain; negative Palpitations or Syncope Gastrointestinal/Abdominal: No Symptoms Reported Genitourinary: No Symptoms Reported Neurological: No Symptoms Reported Musculoskeletal: No Symptoms Reported Integumentary: No Symptoms Reported Hematologic/Lymphatic: No Symptoms Reported Endocrine: No Symptoms Reported Psychiatric: No Symptoms Reported All Other Systems: Reviewed and Negative PE <Kaushik Winn - Last Filed: 11/10/24 20:33> Vital Signs Vitals: Vital Signs Temperature 97.4 F Pulse Rate [Left Radial] 61 Pulse Rate 60 Pulse Rate 60 Pulse Rate 60 Pulse Rate 60 Pulse Rate 60 Pulse Rate 60 Pulse Rate 60 Pulse Rate 60 Pulse Rate 60 Pulse Rate 60 Pulse Rate 59 Pulse Rate 60 Pulse Rate 60 Pulse Rate 60 Pulse Rate 60 Pulse Rate 59 Pulse Rate 59 Pulse Rate 60 Pulse Rate 60 Pulse Rate 61 Pulse Rate 60 Pulse Rate 64 Pulse Rate 65 Pulse Rate 60 Pulse Rate 60 Pulse Rate 60 Pulse Rate 60 Pulse Rate 60 Pulse Rate 60 Pulse Rate 66 Pulse Rate 72 Pulse Rate 62 Pulse Rate 63 Pulse Rate 61 Respiratory Rate 17 Respiratory Rate 25 Respiratory Rate 19 Respiratory Rate 18 Respiratory Rate 20 Respiratory Rate 19 Respiratory Rate 20 Respiratory Rate 11 Respiratory Rate 21 Respiratory Rate 31 Respiratory Rate 16 Respiratory Rate 18 Respiratory Rate 16 Respiratory Rate 15 Respiratory Rate 15 Respiratory Rate 16 Respiratory Rate 16 Respiratory Rate 17 Respiratory Rate 19 Respiratory Rate 29 Respiratory Rate 19 Respiratory Rate 19 Respiratory Rate 22 Respiratory Rate 15 Respiratory Rate 17 Respiratory Rate 17 Respiratory Rate 14 Respiratory Rate 17 Respiratory Rate 18 Respiratory Rate 20 Respiratory Rate 20 Respiratory Rate 37 Respiratory Rate 28 Respiratory Rate 18 Respiratory Rate 28 Respiratory Rate 20 Blood Pressure [Left Arm] 110/67 Blood Pressure 107/49 Blood Pressure 112/77 Blood Pressure 113/74 Blood Pressure 116/79 Blood Pressure 112/74 Blood Pressure 125/79 Blood Pressure 122/65 Blood Pressure 113/71 Blood Pressure 112/81 Blood Pressure 98/62 Blood Pressure 103/55 Blood Pressure 103/55 Blood Pressure 110/87 Blood Pressure 110/67 Blood Pressure 110/67 O2 Sat by Pulse Oximetry 98 O2 Sat by Pulse Oximetry 99 O2 Sat by Pulse Oximetry 100 O2 Sat by Pulse Oximetry 100 O2 Sat by Pulse Oximetry 100 O2 Sat by Pulse Oximetry 100 O2 Sat by Pulse Oximetry 99 O2 Sat by Pulse Oximetry 100 O2 Sat by Pulse Oximetry 100 O2 Sat by Pulse Oximetry 99 O2 Sat by Pulse Oximetry 100 O2 Sat by Pulse Oximetry 100 O2 Sat by Pulse Oximetry 99 O2 Sat by Pulse Oximetry 100 O2 Sat by Pulse Oximetry 99 O2 Sat by Pulse Oximetry 96 O2 Sat by Pulse Oximetry 96 O2 Sat by Pulse Oximetry 94 O2 Sat by Pulse Oximetry 96 O2 Sat by Pulse Oximetry 96 General Limitations: No Limitations General Appearance: Alert and In No Apparent Distress Head Head Exam: Normal Inspection Eyes Eye exam: Normal Appearance ENT ENT Exam: Normal Exam Neck Neck Exam: Normal Inspection Chest Chest Inspection: Normal Inspection Respiratory Respiratory Exam: Normal Lung Sounds Bilat Respiratory Exam: Bilateral: Clear to Auscultation Cardiovascular Cardiovascular Exam: Regular Rate and Normal Rhythm Abdominal Exam Abdominal Exam: Normal Inspection, Normal Bowel Sounds and Soft Extremities Extremities Exam: Normal Inspection Back Back Exam: Normal Inspection Neurologic Neurological Exam: Alert and Oriented X3 Psychiatric Psychiatric Exam: Normal Affect and Normal Mood Skin Skin Exam: Warm, Dry, Intact and Normal Color <Brianda Madrigal - Last Filed: 11/10/24 23:00> Vital Signs Vitals: Vital Signs Temperature 97.4 F Pulse Rate [Left Radial] 61 Pulse Rate 60 Pulse Rate 60 Pulse Rate 60 Pulse Rate 60 Pulse Rate 60 Pulse Rate 60 Pulse Rate 60 Pulse Rate 60 Pulse Rate 60 Pulse Rate 60 Pulse Rate 59 Pulse Rate 60 Pulse Rate 60 Pulse Rate 60 Pulse Rate 60 Pulse Rate 59 Pulse Rate 59 Pulse Rate 60 Pulse Rate 60 Pulse Rate 61 Pulse Rate 60 Pulse Rate 64 Pulse Rate 65 Pulse Rate 60 Pulse Rate 60 Pulse Rate 60 Pulse Rate 60 Pulse Rate 60 Pulse Rate 60 Pulse Rate 66 Pulse Rate 72 Pulse Rate 62 Pulse Rate 63 Pulse Rate 61 Respiratory Rate 17 Respiratory Rate 25 Respiratory Rate 19 Respiratory Rate 18 Respiratory Rate 20 Respiratory Rate 19 Respiratory Rate 20 Respiratory Rate 11 Respiratory Rate 21 Respiratory Rate 31 Respiratory Rate 16 Respiratory Rate 18 Respiratory Rate 16 Respiratory Rate 15 Respiratory Rate 15 Respiratory Rate 16 Respiratory Rate 16 Respiratory Rate 17 Respiratory Rate 19 Respiratory Rate 29 Respiratory Rate 19 Respiratory Rate 19 Respiratory Rate 22 Respiratory Rate 15 Respiratory Rate 17 Respiratory Rate 17 Respiratory Rate 14 Respiratory Rate 17 Respiratory Rate 18 Respiratory Rate 20 Respiratory Rate 20 Respiratory Rate 37 Respiratory Rate 28 Respiratory Rate 18 Respiratory Rate 28 Respiratory Rate 20 Blood Pressure [Left Arm] 110/67 Blood Pressure 107/49 Blood Pressure 112/77 Blood Pressure 113/74 Blood Pressure 116/79 Blood Pressure 112/74 Blood Pressure 125/79 Blood Pressure 122/65 Blood Pressure 113/71 Blood Pressure 112/81 Blood Pressure 98/62 Blood Pressure 103/55 Blood Pressure 103/55 Blood Pressure 110/87 Blood Pressure 110/67 Blood Pressure 110/67 O2 Sat by Pulse Oximetry 98 O2 Sat by Pulse Oximetry 99 O2 Sat by Pulse Oximetry 100 O2 Sat by Pulse Oximetry 100 O2 Sat by Pulse Oximetry 100 O2 Sat by Pulse Oximetry 100 O2 Sat by Pulse Oximetry 99 O2 Sat by Pulse Oximetry 100 O2 Sat by Pulse Oximetry 100 O2 Sat by Pulse Oximetry 99 O2 Sat by Pulse Oximetry 100 O2 Sat by Pulse Oximetry 100 O2 Sat by Pulse Oximetry 99 O2 Sat by Pulse Oximetry 100 O2 Sat by Pulse Oximetry 99 O2 Sat by Pulse Oximetry 96 O2 Sat by Pulse Oximetry 96 O2 Sat by Pulse Oximetry 94 O2 Sat by Pulse Oximetry 96 O2 Sat by Pulse Oximetry 96 <Brianda Madrigal - Last Filed: 11/10/24 23:00> Consultation Call Returned: 22:32 Consultation Comments: Dr Tucker accepts admission. ROR <Kaushik Winn - Last Filed: 11/10/24 20:33> Labs Reviewed 11/10/24 16:31 11/10/24 16:31 Laboratory: WBC 7.9 X10^3/uL (3.6-10.0) 11/10/24 16:31 RBC 4.90 X10^6/uL (4.7-6.0) 11/10/24 16:31 Hgb 13.8 g/dL (13.5-18.0) 11/10/24 16:31 Hct 40.8 % (42.0-54.0) L 11/10/24 16:31 MCV 83.3 fL (80.0-100.0) 11/10/24 16:31 MCH 28.3 pg (27.0-34.0) 11/10/24 16:31 MCHC 33.9 g/dL (33.0-35.0) 11/10/24 16:31 RDW 14.8 % (11.6-16.5) 11/10/24 16:31 Plt Count 218 X10^3/uL (150.0-450.0) 11/10/24 16:31 MPV 7.0 fL (7.4-11.0) L 11/10/24 16:31 Neut % (Auto) 33.9 % (42.0-75.0) L 11/10/24 16:31 Lymph % (Auto) 54.5 % (21.0-51.0) H 11/10/24 16:31 [place] % (Auto) 7.7 % (0.0-13.0) 11/10/24 16:31 Eos % (Auto) 3.0 % (0.9-2.9) H 11/10/24 16:31 Baso % (Auto) 0.9 % (0.2-1.0) 11/10/24 16:31 Neut # (Auto) 2.7 x10^3/uL (2.2-4.8) 11/10/24 16:31 Lymph # (Auto) 4.3 X10^3/uL (1.3-2.9) H 11/10/24 16:31 [place] # (Auto) 0.6 x10^3/uL (0.3-0.8) 11/10/24 16:31 Eos # (Auto) 0.2 x10^3/uL (0.0-0.2) 11/10/24 16:31 Baso # (Auto) 0.1 X10^3/uL (0.0-0.1) 11/10/24 16:31 Absolute Nucleated RBC 0.2 /100WBC 11/10/24 16:31 PT 13.3 SECONDS (11.8-14.3) 11/10/24 16:31 INR Target Range - 11/10/24 16:31 INR 1.03 (0.8-1.3) 11/10/24 16:31 APTT 26.1 SECONDS (22.9-36.5) 11/10/24 16:31 PTT Comment - 11/10/24 16:31 Sodium 143 mmol/L (136-145) 11/10/24 16:31 Corrected Sodium TNP 11/10/24 16:31 Potassium 3.8 mmol/L (3.5-5.1) 11/10/24 16:31 Chloride 108 mmol/L (98-107) H 11/10/24 16:31 Carbon Dioxide 30.0 mmol/L (21-32) 11/10/24 16:31 BUN 14 mg/dL (7-18) 11/10/24 16:31 Creatinine 1.15 mg/dL (0.70-1.30) 11/10/24 16:31 Est GFR (MDRD) Af Amer > 60 (>60) 11/10/24 16:31 Est GFR (MDRD) Non-Af > 60 (>60) 11/10/24 16:31 Glucose 103 mg/dL (65-99) H 11/10/24 16:31 Calcium 9.0 mg/dL (8.5-10.1) 11/10/24 16:31 Corrected Calcium TNP 11/10/24 16:31 Magnesium 1.8 mg/dL (2.0-2.9) L 11/10/24 16:31 Total Bilirubin 0.30 mg/dL (0.2-1.0) 11/10/24 16:31 AST 17 Units/L (15-37) 11/10/24 16:31 ALT 17 Units/L (12-78) 11/10/24 16:31 Alkaline Phosphatase 107 Units/L (46-116) 11/10/24 16:31 Creatine Kinase 183 Units/L (39-308) 11/10/24 16:31 Troponin I High Sens 12.9 ng/L (4.0-60.0) 11/10/24 18:38 Total Protein 7.3 g/dL (6.4-8.2) 11/10/24 16:31 Albumin 3.6 g/dL (3.4-5.0) 11/10/24 16:31 Globulin 3.7 g/dL (2.5-4.5) 11/10/24 16:31 Albumin/Globulin Ratio 1.0 Ratio (1.1-2.1) L 11/10/24 16:31 <Brianda Madrigal - Last Filed: 11/10/24 23:00> Labs Reviewed Laboratory Results Reviewed?: Yes Laboratory: WBC 7.9 X10^3/uL (3.6-10.0) 11/10/24 16:31 RBC 4.90 X10^6/uL (4.7-6.0) 11/10/24 16:31 Hgb 13.8 g/dL (13.5-18.0) 11/10/24 16:31 Hct 40.8 % (42.0-54.0) L 11/10/24 16:31 MCV 83.3 fL (80.0-100.0) 11/10/24 16:31 MCH 28.3 pg (27.0-34.0) 11/10/24 16:31 MCHC 33.9 g/dL (33.0-35.0) 11/10/24 16:31 RDW 14.8 % (11.6-16.5) 11/10/24 16:31 Plt Count 218 X10^3/uL (150.0-450.0) 11/10/24 16:31 MPV 7.0 fL (7.4-11.0) L 11/10/24 16:31 Neut % (Auto) 33.9 % (42.0-75.0) L 11/10/24 16:31 Lymph % (Auto) 54.5 % (21.0-51.0) H 11/10/24 16:31 [place] % (Auto) 7.7 % (0.0-13.0) 11/10/24 16:31 Eos % (Auto) 3.0 % (0.9-2.9) H 11/10/24 16:31 Baso % (Auto) 0.9 % (0.2-1.0) 11/10/24 16:31 Neut # (Auto) 2.7 x10^3/uL (2.2-4.8) 11/10/24 16:31 Lymph # (Auto) 4.3 X10^3/uL (1.3-2.9) H 11/10/24 16:31 [place] # (Auto) 0.6 x10^3/uL (0.3-0.8) 11/10/24 16:31 Eos # (Auto) 0.2 x10^3/uL (0.0-0.2) 11/10/24 16:31 Baso # (Auto) 0.1 X10^3/uL (0.0-0.1) 11/10/24 16:31 Absolute Nucleated RBC 0.2 /100WBC 11/10/24 16:31 PT 13.3 SECONDS (11.8-14.3) 11/10/24 16:31 INR Target Range - 11/10/24 16:31 INR 1.03 (0.8-1.3) 11/10/24 16:31 APTT 26.1 SECONDS (22.9-36.5) 11/10/24 16:31 PTT Comment - 11/10/24 16:31 Sodium 143 mmol/L (136-145) 11/10/24 16:31 Corrected Sodium TNP 11/10/24 16:31 Potassium 3.8 mmol/L (3.5-5.1) 11/10/24 16:31 Chloride 108 mmol/L (98-107) H 11/10/24 16:31 Carbon Dioxide 30.0 mmol/L (21-32) 11/10/24 16:31 BUN 14 mg/dL (7-18) 11/10/24 16:31 Creatinine 1.15 mg/dL (0.70-1.30) 11/10/24 16:31 Est GFR (MDRD) Af Amer > 60 (>60) 11/10/24 16:31 Est GFR (MDRD) Non-Af > 60 (>60) 11/10/24 16:31 Glucose 103 mg/dL (65-99) H 11/10/24 16:31 Calcium 9.0 mg/dL (8.5-10.1) 11/10/24 16:31 Corrected Calcium TNP 11/10/24 16:31 Magnesium 1.8 mg/dL (2.0-2.9) L 11/10/24 16:31 Total Bilirubin 0.30 mg/dL (0.2-1.0) 11/10/24 16:31 AST 17 Units/L (15-37) 11/10/24 16:31 ALT 17 Units/L (12-78) 11/10/24 16:31 Alkaline Phosphatase 107 Units/L (46-116) 11/10/24 16:31 Creatine Kinase 183 Units/L (39-308) 11/10/24 16:31 Troponin I High Sens 12.9 ng/L (4.0-60.0) 11/10/24 18:38 Total Protein 7.3 g/dL (6.4-8.2) 11/10/24 16:31 Albumin 3.6 g/dL (3.4-5.0) 11/10/24 16:31 Globulin 3.7 g/dL (2.5-4.5) 11/10/24 16:31 Albumin/Globulin Ratio 1.0 Ratio (1.1-2.1) L 11/10/24 16:31 Other Results Comments: 54 y/o smoker and poor historian reportedly with an "extensive cardiac hx" who takes no medication for anything 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 There is also information reporting angioplasty but pt says he has never been given any meds for heart problems and doesn't understand why people keep asking him about them. He is currently pain free and resting comfortably; he is agreeable to admission to [facility]. Opioid <Kaushik Winn - Last Filed: 11/10/24 20:33> Opioid Risk Tool Age (Doc box if 16-45): No History of Preadolescent Sexual Abuse: No Total: 0 Total Score Risk Category: Low Risk Copyright: Skip HARVEY predicting aberrant behaviors <Brianda Madrigal - Last Filed: 11/10/24 23:00> Opioid Risk Tool Total: 0 Total Score Risk Category: Low Risk Discharge Plan Diagnosis Discharge Problem: Chest pain, Acute dyspnea, Pacemaker Discharge Plan Patient Disposition: ADMITTED INPATIENT Condition: Stable
[2024-11-10] MEDS: NS 1,000 ML IV 1,000 ML IV ONE (17:37)
[2024-11-10] MEDS: MAGNESIUM SULFATE 1 GRAM/100 mL PREMIX 1 G/100 ML BAG IV ONE (17:37)
--- NOTE | 2024-11-10 22:23 | EKG ---
Test Reason : chest pain Blood Pressure : */* mmHG Vent. Rate : 60 BPM Atrial Rate : 60 BPM P-R Int : * ms QRS Dur : 144 ms QT Int : 462 ms P-R-T Axes : * -65 101 degrees QTc Int : 462 ms AV dual-paced rhythm Abnormal ECG When compared with ECG of 10-NOV-2024 16:16, Vent. rate has decreased BY 4 BPM Confirmed by Chao Castle ([id number]) on 11/20/2024 9:44:22 AM Referred By: Confirmed By: Chao Castle
[2024-11-10 22:28] VITALS: PULSE 60
[2024-11-10 23:02] LABS: BILIRUBIN,URINE NEGATIVE (NEGATIVE); BLOOD/HEMOGLOBIN,URINE NEGATIVE (NEGATIVE); GLUCOSE, URINE NEGATIVE (NEGATIVE); KETONES,URINE NEGATIVE (NEGATIVE); LEUKOCYTE ESTERASE ,URINE 2+ (NEGATIVE); NITRITES,URINE NEGATIVE (NEGATIVE); PROTEIN,URINE 2+ (NEGATIVE); UROBILINOGEN,URINE NORMAL (NORMAL)
[2024-11-10 23:10] LABS: APPEARANCE,URINE CLOUDY (CLEAR); COLOR,URINE YELLOW (YELLOW)
[2024-11-10 23:11] LABS: BACTERIA,URINE TRACE /HPF (NEGATIVE); SQUAMOUS EPITHELIAL CELL,UR FEW /HPF (NEGATIVE)
[2024-11-11 04:14] VITALS: RESP 18; TEMP 98.2
--- NOTE | 2024-11-11 04:34 | EKG ---
Test Reason : CHEST PAIN Blood Pressure : */* mmHG Vent. Rate : 60 BPM Atrial Rate : 60 BPM P-R Int : 298 ms QRS Dur : 142 ms QT Int : 454 ms P-R-T Axes : 53 -59 111 degrees QTc Int : 454 ms AV dual-paced rhythm with prolonged AV conduction Abnormal ECG When compared with ECG of 10-NOV-2024 22:20, (Unconfirmed) No significant change was found Confirmed by Chao Castle ([id number]) on 11/20/2024 9:44:17 AM Referred By: Confirmed By: Chao Castle
--- NOTE | 2024-11-11 05:08 | RAD ---
EXAM:CHEST, 1 VIEWHISTORY:shortness of breath. He started complaining of intense neck, left shoulder, and chest pain shortly after. Patient states that he has been nauseated since the pain started.;COMPARISON:11/28/2023FINDINGS:T he cardiomediastinal silhouette is stable. Right-sided pacer and pacer wires unchanged.No acute airspace disease. No pneumothorax or effusion.No acute osseous abnormality.IMPRESSION:No acute cardiopulmonary disease.THIS IS AN ELECTRONICALLY VERIFIED FINAL [id number]/11/2024 5:04 AM - Electronically signed by Jamel Nance MD
[2024-11-11 05:23] LABS: BASOPHILS # (AUTO) 0.1 X10^3/uL (0.0-0.1); BASOPHILS % (AUTO) 0.7 % (0.2-1.0); EOSINOPHILS # (AUTO) 0.3 x10^3/uL (0.0-0.2); EOSINOPHILS % (AUTO) 3.7 % (0.9-2.9); HEMATOCRIT 39.3 % (42.0-54.0); HEMOGLOBIN 13.2 g/dL (13.5-18.0); LYMPHOCYTES # (AUTO) 3.1 X10^3/uL (1.3-2.9); LYMPHOCYTES % (AUTO) 39.6 % (21.0-51.0); MEAN CORPUSCULAR HEMOGLOBIN 28.2 pg (27.0-34.0); MEAN CORPUSCULAR HGB CONC 33.7 g/dL (33.0-35.0); MEAN CORPUSCULAR VOLUME 83.7 fL (80.0-100.0); MEAN PLATELET VOLUME 7.3 fL (7.4-11.0); MONOCYTES # (AUTO) 0.7 x10^3/uL (0.3-0.8); MONOCYTES % (AUTO) 8.8 % (0.0-13.0); NEUTROPHILS # (AUTO) 3.7 x10^3/uL (2.2-4.8); NEUTROPHILS % (AUTO) 47.2 % (42.0-75.0); PLATELET COUNT 194 X10^3/uL (150.0-450.0); RED BLOOD COUNT 4.69 X10^6/uL (4.7-6.0); RED CELL DISTRIBUTION WIDTH 14.9 % (11.6-16.5); WHITE BLOOD COUNT 7.8 X10^3/uL (3.6-10.0)
[2024-11-11 05:45] LABS: ALANINE AMINOTRANSFERASE 23 Units/L (12-78); ALBUMIN 3.1 g/dL (3.4-5.0); ALKALINE PHOSPHATASE 96 Units/L (46-116); ASPARTATE AMINO TRANSFERASE 26 Units/L (15-37); BLOOD UREA NITROGEN 10 mg/dL (7-18); CALCIUM 8.6 mg/dL (8.5-10.1); CHLORIDE 111 mmol/L (98-107); CHOL/HDL RATIO 2.8 (0.0-5.0); CHOLESTEROL 144 mg/dL (0-200); COR CA(FOR HYPOALB) 9.3 mg/dL (8.5-10.1); CREATININE 0.87 mg/dL (0.70-1.30); GLUCOSE 104 mg/dL (65-99); HDL CHOLESTEROL 52 mg/dL (40-60); MAGNESIUM 2.1 mg/dL (2.0-2.9); POTASSIUM 3.7 mmol/L (3.5-5.1); SODIUM 143 mmol/L (136-145); TOTAL PROTEIN 6.5 g/dL (6.4-8.2); TRIGLYCERIDES 86 mg/dL (0-150); eGFR NON BLACK RACES > 60 (>60)
[2024-11-11] MEDS: NS 1,000 ML IV 1,000 ML ONE (07:04)
[2024-11-11] MEDS: MAGNESIUM SULFATE 1 GRAM/100 mL PREMIX 1 G/100 ML BAG IV ONE (07:12)
[2024-11-11 07:44] VITALS: BP 122/84; O2SAT 98
[2024-11-11] MEDS: PROTONIX INJ 40 MG VIAL IVP ONE (08:19)
== END 2024-11-11 08:30 | disposition home or self-care (01) ==
LOC: SUPCPDRO → ER 16:01 → U 16:01
PROVIDERS: ADMIT Internal Medicine; ATTEND Internal Medicine
DX: I25.10 Atherosclerotic heart disease of native coronary artery without angina pectoris; Z72.0 Tobacco use; I10 Essential (primary) hypertension; M25.512 Pain in left shoulder; R11.0 Nausea; R06.02 Shortness of breath; E83.42 Hypomagnesemia; R07.89 Other chest pain; Z95.0 Presence of cardiac pacemaker; M54.2 Cervicalgia; R10.13 Epigastric pain; R94.31 Abnormal electrocardiogram [ECG] [EKG]